=== PATIENT | male | born 1990 | race Caucasian/White ===

== ENCOUNTER 2016-08-27 14:31 | Emergency (ER) | payer MEDICAID, OTHER ==
[~2016-08-27] VITALS: Ht 193 cm; Wt 81.8 kg
[2016-08-27 14:33] VITALS: BP 134/82; PULSE 82; RESP 16; O2SAT 99
[2016-08-27] MEDS ORDERED: BUPR1FIL3 SL (14:36)
--- NOTE | 2016-08-27 14:39 | ED.REPORT ---
HPI-Extremity Problem Upper Date of Service August 27, 2016 ED Provider: History of Present Illness: right hand index finger laceration cut with a pocket knife while opening a can of paint. right hand dominant. unknown tdap. primary care is no one. is seen at [facility], Dr. Cheatham is provider there Nursing Notes Stated Complaint: RIGHT HAND INJURY Chief Complaint: Laceration Nursing Notes Reviewed: Yes Allergies: Coded Allergies: No Known Allergies (Unverified , 08/27/16) Scheduled Buprenorphine HCl/Naloxone HCl (Suboxone 8 mg-2 mg Sl Film) 1 Each Film 1 EACH SL DAILY General Time Seen by MD: 14:38 Chief Complaint Hand injury right Hx Obtained From: Patient Onset Occurred: 1 - 4 hours ago Symptom Duration: Since onset Past Medical History Past Medical History Denies: Asthma, Diabetes mellitus Past Surgical History denies Smoking History Current Every Day Smoker (1/2 pack a day for 7 years) 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 Alcohol Use: "Social" Drug Use: In recovery Other Social History: Lives with parents Occupation works at [employer] 08/27/2016 Ambulatory Status Independent Review of Systems Basic Review of Systems Eyes: Vision NL, No discharge GI: No abdominal pain, No anorexia, No nausea, No vomiting Psychiatric: Normal thought content Physical Exam Initial Vital Signs Vital Signs (First) Date Time Temp Pulse Resp B/P Pulse Ox O2 Delivery O2 Flow Rate FiO2 08/27/16 14:33 36.6 82 16 134/82 99 Room Air Initial VS: Reviewed, Vital signs normal General/Constitutional: Well-developed, Well-nourished Head / Eyes: Atraumatic, Normocephalic, PERRL ENT: Mucous membranes moist, Conjunctiva normal, No scleral icterus Neck: Supple, Non-tender, Full range of motion Respiratory: Breath sounds normal, Clear to auscultation, No respiratory distress Cardiovascular: Regular rate & rhythm, Heart sounds normal, Intact distal pulses Abdomen / GI: Soft, Non-tender, No guarding, No rebound, No distention Back: No CVA tenderness Lymphatic: No lymphadenopathy Lower Extremities: Vascular intact, Neuro intact, No swelling, No tenderness Skin: Warm, Dry, No cyanosis Neurologic: Alert, Oriented, Nonfocal Psychiatric: Mood/affect normal, Behavior normal, Normal thought content General/Constitutional: Awake, Alert, No acute distress, Well appearing, Well developed, Well hydrated, Well nourished, Cooperative, Not toxic appearing Respiratory / Chest: Breath sounds NL, Breath sounds = bilat, No respiratory distress, No rales, No rhonchi, No wheezing Cardiovascular: Heart rate NL, Regular rhythm, Heart sounds NL, No gallop Upper Extremity / MS: Atraumatic, Inspection NL, Full range of motion, No swelling Wrist / Hand: Atraumatic right lateral index finger has 1 cm laceration. sensation intact distally, has full range of motion. cap refill less than 3 seconds Procedures Laceration Management Time: 14:25 Procedure Performed by: Allied health pract Consent / Setup / Site Prep: Informed consent provided, Consent from patient , Hand hygiene observed, Stand sterile technique Location of Wound: right indext finger Wound Length: 1 cm Local Anesthesia: Lidocaine 1%, 4cc, 27g needle Digital Block: Yes Digit Involved: Index finger right Wound Preparation: Normal saline Debridement: None Irrigation: 100 cc Foreign Body Explore / Removal: Explored for foreign body Repair Skin: ___ O (5), Nylon # Sutures - Skin: 2 Closure Layers: 1 Suture Technique: Simple Post-Procedure / Complications: Antibiotic oint applied, Dressing applied, No complications, Condition improved, Tolerated procedure well, Patient stable Re-Eval/Medical Decision Med Decision/Clinical Course 25 year old male presents to the ER for repair of finger laceration. Patient has full range of motion. No sign of tendon damage or fracture. Wound repaired with 2 sutures. Discharge & Departure Impression: Primary Impression: Laceration Disposition: Home Patient Instructions: Finger Laceration (ED) Additional Instructions: You have full range of motion. The wound has been repaired with 2 sutures. Sutures out here in 10 days. Use bacitracin to the wound with each dressing change. Keep dry for 24 hours. It is OK to get wet after that. You are cleared to return to work tomorrow. Keep the wound dry. Can use ibuprofen 800 mg up to 3 times a day as needed for any discomfort. If redness, like a sunburn develops or thick yellow discharge, return to the ER immediately. You have been updated on your tdap today. Referrals: [facility] EDSupervising Provider for APC: Willow Cheatham MD copies to: [facility] Leticia Palacios August 27, 2016 14:38
[2016-08-27] MEDS ORDERED: TdaP Vaccine 0.5 mL Inj IM ONE (14:50)
== END 2016-08-27 15:33 | disposition home or self-care (01) ==
LOC: SED 14:31
DX: S61.210A Laceration without foreign body of right index finger without damage to nail, initial encounter (principal); W26.0XXA Contact with knife, initial encounter; Y93.89 Activity, other specified; Y92.9 Unspecified place or not applicable; Y99.8 Other external cause status; F17.200 Nicotine dependence, unspecified, uncomplicated; Z23 Encounter for immunization